=== PATIENT | male | born 1980 | race African-American/Black ===

== ENCOUNTER 2017-11-23 08:05 | Emergency (ER) | payer OTHER ==
[2017-11-23 09:34] LABS: BASOPHILS % 0.8 (0.0-1.5); EOSINOPHILS % 1.6 % (0.0-6.8); MEAN CORPUSCULAR HEMOGLOBIN 30.6 pg (28.0-34.0); MEAN CORPUSCULAR VOLUME 93.3 fl (80.0-100.0); MONOCYTES % 5.9 % (0.0-11.0); NEUTROPHILS # 3.1 # k/uL (1.4-7.7)
[2017-11-23 09:41] LABS: eGFR (African) > 60; eGFR (Non-African) > 60
[2017-11-23 09:55] LABS: APPEARANCE,URINE Clear (CLEAR); COLOR,URINE Orange (YELLOW); OCCULT BLOOD,URINE Negative (NEGATIVE)
[2017-11-23 10:11] LABS: SPERM,URINE PRESENT (NEGATIVE)
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
[2017-11-24 01:45] VITALS: BP 132/64
== END 2017-11-23 11:10 | disposition home or self-care (01) ==
LOC: ED 08:05
DX: Z00.8 Encounter for other general examination (principal)
CPT/HCPCS: 80053; 81002; 85025; 99282